=== PATIENT | female | born 1975 | race Caucasian/White ===

== ENCOUNTER 2016-07-26 10:09 | Emergency (ER) | payer OTHER ==
[~2016-07-26] VITALS: Ht 170.2 cm; Wt 88.5 kg
--- NOTE | 2016-07-26 11:29 | ED GI/GU/ABDOMINAL COMPLAINT ---
History of Present Illness General Chief Complaint: Abdominal Pain/Flank Pain Stated Complaint: ABD PAIN Source: patient Exam Limitations: no limitations Vital Signs & Intake/Output Vital Signs & Intake/Output Vital Signs Date Time Temp Pulse Resp B/P Pulse O2 O2 Flow FiO2 Ox Delivery Rate 07/26 1631 98.3 55 16 117/66 98 Room Air 07/26 1424 97.3 64 16 94/52 97 Room Air 07/26 1214 98.4 62 18 110/54 98 Room Air 07/26 1022 97.0 68 16 110/80 97 Room Air Allergies Coded Allergies: No Known Allergies (07/26/16) Reconcile Medications Dicyclomine Hydrochloride (Bentyl) 10 MG CAPSULE 2 CAP PO TID pain Levothyroxine Sodium 125 MCG TABLET 1 TAB PO DAILY AC THYROID (Reported) Ondansetron (Zofran Odt) 4 MG TAB.RAPDIS 1 TAB SL TID nausea Oxycodone HCl/Acetaminophen (Percocet 5-325 MG Tablet) 5 MG-325 MG TABLET 1-2 TAB PO Q6P PRN pain Triage Note: PT STATES SHE HAS A STOMACH ACHE. PT REPORTS THAT SHE HAS BEEN VOMITING. PT WENT TO WALK IN AND WAS TOLD TO COME TO THE ED. PT STATES THEY DIDN'T HAVE EQUIPMENT TO DO AN US. Triage Nurses Notes Reviewed? yes ? n Is pt currently ? No Onset: Abrupt Duration: hour(s):, constant, continues in ED Quality/Severity: moderate, sharpness, severe Location: generalized abdomen No Modifying Factors: none HPI: 41-year-old female comes into emergency room for further evaluation of sudden onset crampy abdominal pain followed by vomiting and diarrhea that began around 2 AM this morning. Some associated chills. Patient reports that she felt fine last night. Patient ate some green beans and yogurt last night. Denies any sick contacts. Denies any urinary symptoms. Symptoms have been persistent and severe. Patient has had at least 7-8 episodes of diarrhea and vomited multiple times. (EMILIANO VACA) Past History Travel History Traveled to [place] past 21 day No Medical History Any Pertinent Medical History? see below for history Endocrine: hypothyroidism Surgical History Surgical History: non-contributory Psychosocial History What is your primary language Azerbaijani Tobacco Use: Never used ETOH Use: occasional use Illicit Drug Use: denies illicit drug use Family History Hx Contributory? No (EMILIANO VACA) Review of Systems Review of Systems Constitutional: Reports: no symptoms. EENTM: Reports: no symptoms. Respiratory: Reports: no symptoms. Cardiovascular: Reports: no symptoms. GI: Reports: see HPI. Genitourinary: Reports: no symptoms. Musculoskeletal: Reports: no symptoms. Skin: Reports: no symptoms. Neurological/Psychological: Reports: no symptoms. Hematologic/Endocrine: Reports: no symptoms. Immunologic/Allergic: Reports: no symptoms. All Other Systems: Reviewed and Negative (EMILIANO VACA) Physical Exam Physical Exam General Appearance: well developed/nourished, alert, mild distress Head: atraumatic, normal appearance Eyes: Bilateral: normal appearance, EOMI. Ears, Nose, Throat, Mouth: hearing grossly normal, moist mucous membrane Neck: normal inspection, supple, full range of motion Respiratory: normal breath sounds, no respiratory distress Cardiovascular: regular rate/rhythm Gastrointestinal: soft, tenderness (epigastric) Back: normal inspection Extremities: normal range of motion Neurologic/Psych: awake, alert, oriented x 3, normal gait, normal mood/affect Skin: intact, normal color Core Measures ACS in differential dx? No Severe Sepsis Present: No Septic Shock Present: No (EMILIANO VACA) Progress Differential Diagnosis: appendicitis, biliary colic, bowel obstruction, cholecystitis, diverticulitis, ectopic , gastritis, hepatitis, ischemic bowel, inflamm bowel dis, kidney stone, pancreatitis, peptic ulcer, PUD/GERD, perforated viscous, SBO, UTI/pyelo, gastroenteritis Plan of Care: Orders Procedure Date/time Status LIPASE 07/26 1119 Complete HUMAN BETA HCG SCREEN 07/26 1119 Complete COMPREHENSIVE METABOLIC PANEL 07/26 1119 Complete CBC WITHOUT DIFFERENTIAL 07/26 1119 Complete AMYLASE 07/26 1119 Complete Current Medications Sig/Ayden Start time Last Medication Dose Stop Time Status Admin Hydromorphone HCl 1 MG ONCE ONE 07/26 174 AC (Dilaudid) 07/26 1746 Laboratory Tests 07/26/16 1130: Anion Gap 12, Estimated GFR > 60, BUN/Creatinine Ratio 16.7, Glucose 115 H, Calcium 9.5, Total Bilirubin 0.7, AST 29, ALT 44, Alkaline Phosphatase 66, Total Protein 8.0, Albumin 4.5, Globulin 3.5, Albumin/Globulin Ratio 1.3, Amylase 54, Lipase 152, Total Beta HCG NEGATIVE, CBC w Diff NO MAN DIFF REQ, RBC 4.63, MCV 88.3, MCH 30.0, RDW 13.3, MPV 11.0 H, Gran % 87.6 H, Lymphocytes % 10.6 L, Monocytes % 1.2 L, Eosinophils % 0.5, Basophils % 0.1, Absolute Granulocytes 8.1 H, Absolute Lymphocytes 1.0 L, Absolute Monocytes 0.1 L, Absolute Eosinophils 0, Absolute Basophils 0, PUBS MCHC 34.0 Diagnostic Imaging: Viewed by Me: Radiology Read, Ultrasound. Discussed w/RAD: Radiology Read, Ultrasound. Radiology Impression: SERVICE DATE: 07/26/16 EXAM TYPE: US - US-LIMITED ABDOMEN EXAMINATION: US ABDOMEN LIMITED CLINICAL INFORMATION: Abdominal pain. COMPARISON: CT abdomen and pelvis with contrast 07/26/2016. TECHNIQUE: Real-time imaging of the right upper quadrant abdominal viscera. FINDINGS: PANCREAS: The visualized portions of the pancreas appear unremarkable. The distal pancreatic body and tail are obscured by overlying bowel gas. LIVER: Unremarkable. The liver demonstrates normal size, contour and echogenicity. No focal lesion or intrahepatic biliary duct dilatation. GALLBLADDER: There is a 1.5 cm nonshadowing, echogenic nodule within the gallbladder neck (series 1, image 21). This may correspond to the recently described hypoattenuating lesion within the gallbladder neck on a similarly dated CT of the abdomen and pelvis. No gallbladder wall thickening or pericholecystic fluid is identified. COMMON BILE DUCT: Mildly prominent measuring 0.6 cm in diameter. RIGHT KIDNEY: Unremarkable. No hydronephrosis. No renal calculi or focal parenchymal lesions. The kidney measures 11.5 cm in maximum dimension. FREE FLUID: None. IMPRESSION: 1. The gallbladder is physiologically distended. Of note, there is a 1.5 cm nonshadowing, echogenic nodule in the region of the gallbladder neck. This finding is indeterminate and may correspond to a fold within the gallbladder wall or perhaps a gallbladder polyp. It may correspond to the recently described hypoattenuating lesion within the gallbladder neck on a similarly dated CT of the abdomen and pelvis. No secondary signs of acute cholecystitis. Recommend attention on short interval follow-up ultrasound. 2. The common bile duct is mildly prominent and is visualized measuring up to 0.6 m in diameter. This finding is entirely nonspecific. If there is a clinical concern for choledocholithiasis, consider correlation with a dedicated MRCP of the abdomen. DICTATED BY: GIANNI AGUDELO MD DATE/TIME DICTATED:07/26/161512 ASSISTANCE COORDINATOR:CHEVY DATE/TIME TRANSCRIBED:07/26/161512, JORGE TYPE: CAT - CT ABD & PELVIS W IV CONTRAST EXAMINATION: CT ABDOMEN AND PELVIS WITH CONTRAST CLINICAL INFORMATION: Persistent abdominal pain after IV meds with vomiting and diarrhea COMPARISON: None. TECHNIQUE: Multidetector volumetric imaging was performed of the abdomen and pelvis before and after the IV administration of 94 mL of Optiray 320 intravenous contrast. Sagittal and coronal reformatted images were obtained on the technologist's workstation. DLP: 479.66 mGy-cm FINDINGS: LUNG BASES: The visualized lung bases are unremarkable. LIVER, GALLBLADDER, AND BILIARY TREE: The liver is normal in size, shape, and attenuation. No focal hepatic lesion or biliary ductal dilatation is present. The gallbladder is distended. There may be a noncalcified gallstone present at the neck of the gallbladder that measures about 1.7 cm. Ultrasound is recommended for further evaluation. No pericholecystic fluid is seen. No inflammatory changes are noted around the gallbladder. PANCREAS: Unremarkable. SPLEEN: Unremarkable. ADRENAL GLANDS: Unremarkable. KIDNEYS AND URETERS: The kidneys are normal in size, shape , and attenuation. No hydronephrosis, hydroureter, or calculi seen. No perinephric stranding. BLADDER: Unremarkable. GASTROINTESTINAL TRACT: The distal colon is collapsed with one loop of sigmoid that is a bit more distended. There is no evidence of bowel obstruction. The appendix appears normal. The terminal ileum appears normal. ABDOMINAL WALL: No significant hernia is appreciated. Small periumbilical hernia seen containing only fat. LYMPH NODES: Normal. VASCULAR: Unremarkable. PELVIC VISCERA: An anteverted uterus is present. There may be a pedunculated anterior subserosal fibroid present. Ultrasound could be performed for further evaluation. Both ovaries are seen adjacent to the uterus. No free intraperitoneal fluid is noted. OSSEOUS STRUCTURES: Unremarkable. IMPRESSION: 1. Distended gallbladder with question of stone in the neck. An ultrasound is recommended for further evaluation. 2. Anteverted uterus with question of subserosal pedunculated fibroid. This could also be better assessed with ultrasound. DICTATED BY: COLBY ESTES MD DATE/TIME DICTATED:07/26/161348 ASSISTANCE COORDINATOR:CHEVY DATE/TIME TRANSCRIBED:07/26/161348 Initial ED EKG: none (BLAYNE STEWARD,EMILIANO) Departure Departure Disposition: HOME OR SELF CARE Condition: Stable Clinical Impression Primary Impression: Abdominal pain Secondary Impressions: Nausea and vomiting Referrals: THELMA CANALES DO (PCP/Family) BOBBY CONLEY,MURPHY Lee Additional Instructions: Take Bentyl, Zofran ODT, and Percocet as prescribed. Follow-up with log chain feeder provided. Return if any other concerns worsening symptoms. Please go over all results of today's visit with your primary care doctor. Contact your primary care doctor to let them know you were here in the emergency room. There may be nonspecific findings which may not be related to your visit today here in the emergency room but may require further evaluation and chronic monitoring by your primary care doctor. If you had a laceration today the chance of foreign body always remains. You should follow-up with your primary care doctor for recheck in 3-5 days for a wound check. If you had an x-ray done there is a chance that a fracture could have been missed on initial read and you should follow-up with your primary care doctor for repeat x-rays if symptoms persist. If your blood pressure was elevated here in the emergency room please have rechecked by her primary care doctor within the next 48 hours by your primary care doctor. If you were prescribed a narcotic here in the emergency room or any type of controlled substances you're not allowed to drive while taking this medication or operate any type of heavy machinery. Narcotics can make you feel lightheaded dizziness nausea and can cause constipation. You may need to brain picker a stool softener. Thank you for choosing [facility] emergency room. Please return to the emergency room immediately if you have any other concerns worsening of symptoms. Departure Forms: Customer Survey General Discharge Information Prescriptions: Current Visit Scripts Dicyclomine Hydrochloride (Bentyl) 2 CAP PO TID #30 CAP Ondansetron (Zofran Odt) 1 TAB SL TID #10 TAB Oxycodone HCl/Acetaminophen (Percocet 5-325 MG Tablet) 1-2 TAB PO Q6P PRN pain #10 TAB Comments 07/26/2016 5:45:51 PM Patient clinically looks well. Nontoxic-appearing. In no apparent distress. Reevaluated multiple times. Labs within normal limits. Initially patient did not respond to pain medication which is why the CAT scan was ordered. Patient appears to have a gastroenteritis based on her symptoms. Due to nonspecific symptoms seen on CAT scan and ultrasound was followed up. lfts is within normal limits. No white count. Afebrile. Do not feel this is a primary gallbladder issue this time. Patient referred to GI doctor for follow-up. Return if any other concerns. Patient feels better after second round of IV medications. Case discussed with Dr. garcia (EMILIANO VACA) PA/STOCK ROOM MANAGER Co-Sign Statement Statement: ED Attending supervision documentation- [] I saw and evaluated the patient. I have also reviewed all the pertinent lab results and diagnostic results. I agree with the findings and the plan of care as documented in the PA's/STOCK ROOM MANAGER's documentation. [X] I have reviewed the ED Record and agree with the PA's/STOCK ROOM MANAGER's documentation. [] Additions or exceptions (if any) to the PAs/STOCK ROOM MANAGER's note and plan are summarized below: [] (MARII CONLEY,AYLIN)
[2016-07-26] MEDS ORDERED: LEVOTHYROXINE125 MCG PO (11:30)
[2016-07-26 11:46] LABS: ABSOLUTE BASOPHIL COUNT 0 /CUMM (0.0-0.2); ABSOLUTE EOSINOPHIL COUNT 0 /CUMM (0.0-0.7); ABSOLUTE GRANULOCYTE CT 8.1 /CUMM (1.4-6.5); ABSOLUTE MONOCYTE COUNT 0.1 /CUMM (0.10-0.60); BASOPHIL % 0.1 % (0.0-2.0); EOSINOPHIL % 0.5 % (0-5); HEMATOCRIT 40.9 % (37-47); MEAN CORPUSCULAR VOLUME 88.3 FL (81.0-99.0); RBC DISTRIBUTION WIDTH 13.3 % (11.5-14.5); RED BLOOD CELL CT 4.63 /CUMM (4.20-5.40); WHITE BLOOD CELL COUNT 9.2 /CUMM (4.8-10.8)
[2016-07-26 12:06] LABS: GRANULOCYTE % 87.6 % (42.2-75.2); PLATELET COUNT 234 /CUMM (130-400)
--- NOTE | 2016-07-26 14:14 | CT SCAN REPORT ---
EXAMINATION: CT ABDOMEN AND PELVIS WITH CONTRAST CLINICAL INFORMATION: Persistent abdominal pain after IV meds with vomiting and diarrhea COMPARISON: None. TECHNIQUE: Multidetector volumetric imaging was performed of the abdomen and pelvis before and after the IV administration of 94 mL of Optiray 320 intravenous contrast. Sagittal and coronal reformatted images were obtained on the technologist's workstation. DLP: 479.66 mGy-cm FINDINGS: LUNG BASES: The visualized lung bases are unremarkable. LIVER, GALLBLADDER, AND BILIARY TREE: The liver is normal in size, shape, and attenuation. No focal hepatic lesion or biliary ductal dilatation is present. The gallbladder is distended. There may be a noncalcified gallstone present at the neck of the gallbladder that measures about 1.7 cm. Ultrasound is recommended for further evaluation. No pericholecystic fluid is seen. No inflammatory changes are noted around the gallbladder. PANCREAS: Unremarkable. SPLEEN: Unremarkable. ADRENAL GLANDS: Unremarkable. KIDNEYS AND URETERS: The kidneys are normal in size, shape, and attenuation. No hydronephrosis, hydroureter, or calculi seen. No perinephric stranding. BLADDER: Unremarkable. GASTROINTESTINAL TRACT: The distal colon is collapsed with one loop of sigmoid that is a bit more distended. There is no evidence of bowel obstruction. The appendix appears normal. The terminal ileum appears normal. ABDOMINAL WALL: No significant hernia is appreciated. Small periumbilical hernia seen containing only fat. LYMPH NODES: Normal. VASCULAR: Unremarkable. PELVIC VISCERA: An anteverted uterus is present. There may be a pedunculated anterior subserosal fibroid present. Ultrasound could be performed for further evaluation. Both ovaries are seen adjacent to the uterus. No free intraperitoneal fluid is noted. OSSEOUS STRUCTURES: Unremarkable. IMPRESSION: 1. Distended gallbladder with question of stone in the neck. An ultrasound is recommended for further evaluation. 2. Anteverted uterus with question of subserosal pedunculated fibroid. This could also be better assessed with ultrasound.
--- NOTE | 2016-07-26 16:05 | ULTRASOUND REPORT ---
EXAMINATION: US ABDOMEN LIMITED CLINICAL INFORMATION: Abdominal pain. COMPARISON: CT abdomen and pelvis with contrast 07/26/2016. TECHNIQUE: Real-time imaging of the right upper quadrant abdominal viscera. FINDINGS: PANCREAS: The visualized portions of the pancreas appear unremarkable. The distal pancreatic body and tail are obscured by overlying bowel gas. LIVER: Unremarkable. The liver demonstrates normal size, contour and echogenicity. No focal lesion or intrahepatic biliary duct dilatation. GALLBLADDER: There is a 1.5 cm nonshadowing, echogenic nodule within the gallbladder neck (series 1, image 21). This may correspond to the recently described hypoattenuating lesion within the gallbladder neck on a similarly dated CT of the abdomen and pelvis. No gallbladder wall thickening or pericholecystic fluid is identified. COMMON BILE DUCT: Mildly prominent measuring 0.6 cm in diameter. RIGHT KIDNEY: Unremarkable. No hydronephrosis. No renal calculi or focal parenchymal lesions. The kidney measures 11.5 cm in maximum dimension. FREE FLUID: None. IMPRESSION: 1. The gallbladder is physiologically distended. Of note, there is a 1.5 cm nonshadowing, echogenic nodule in the region of the gallbladder neck. This finding is indeterminate and may correspond to a fold within the gallbladder wall or perhaps a gallbladder polyp. It may correspond to the recently described hypoattenuating lesion within the gallbladder neck on a similarly dated CT of the abdomen and pelvis. No secondary signs of acute cholecystitis. Recommend attention on short interval follow-up ultrasound. 2. The common bile duct is mildly prominent and is visualized measuring up to 0.6 m in diameter. This finding is entirely nonspecific. If there is a clinical concern for choledocholithiasis, consider correlation with a dedicated MRCP of the abdomen.
[2016-07-26] MEDS ORDERED: BENTYL10 M1 PO (17:16)
[2016-07-26] MEDS ORDERED: ZOFRAN ODT4 M1 SL (17:16)
[2016-07-26] MEDS ORDERED: PERCOCET 5-3251 EACH PO (17:16)
== END 2016-07-26 18:03 ==
LOC: ERH 10:09
PROVIDERS: Physician Assistant Medical
DX: R10.13 Epigastric pain (principal); R11.2 Nausea with vomiting, unspecified
CPT/HCPCS: 74177; 96361; 96372; 96374; 96375; 96376; J0500; J2405